=== PATIENT | male | born 1940 | race Caucasian/White ===

== ENCOUNTER 2024-09-02 14:28 | Inpatient (IN) | payer MEDICARE, SELFPAY ==
[2024-09-02 14:30] VITALS: BP 123/67; PULSE 90; RESP 18; TEMP 35.9; O2SAT 97; BMI 33.0
--- NOTE | 2024-09-02 14:30 | ADMGEN ---
This patient, Manoj Sullivan, was admitted to 2nd Floor Room 204 as a skilled swing bed to due a total right knee replacement. Patient/family oriented to hospital policies and general routines including ID bracelet, bed and alarms, visiting hours, pain management, procedures, bathroom and other care routines, personal items, smoking policy, room service/diet, and visiting hours. Information on how to activate the Rapid Response Team has been discussed. Patient/Family are encouraged to report perceived risks to care and to ask questions if they do not understand what they are told or what they should do.
[2024-09-02 17:26] VITALS: PULSE 90; RESP 18; O2SAT 97
[2024-09-02] MEDS: SIMVASTATIN 10 MG TABLET 80 MG PO (17:51)
[2024-09-02] MEDS: ASPIRIN 81 MG CHEWABLE TABLET PO (17:52)
[2024-09-02] MEDS: ASCORBIC ACID 500 MG TABLET PO (17:52)
[2024-09-02] MEDS: HYDROcodone/acetaminophen (*CRX) 5-325 MG TABLET 1 TAB PO (17:52)
[2024-09-02] MEDS: metFORMIN HCL XR 500 MG TAB.SR.24H PO (17:52)
[2024-09-02 20:00] VITALS: PULSE 90; RESP 18; O2SAT 97
[2024-09-02] MEDS: HYDROcodone/acetaminophen (*CRX) 5-325 MG TABLET 2 TAB PO (21:52)
[2024-09-02] MEDS: FENOFIBRATE NANOCRYSTALLIZED 145 MG TABLET PO (21:52)
[2024-09-03] VITALS: BP 138/68; PULSE 93; RESP 16; TEMP 36.6; O2SAT 96
[2024-09-03 07:34] LABS: Hematocrit 36.0 % (37.0-46.0); Hemoglobin 11.7 g/dL (12.4-15.3); Mean Corpuscular HGB Conc 32.5 g/dL (32-36); Mean Corpuscular Hemoglobin 31.6 pg (27.0-31.0); Mean Corpuscular Volume 97.3 fL (78.0-102.0); Platelet Count Result 276 K/mm3 (150-420); Red Blood Count 3.70 M/mm3 (4.70-6.10); White Blood Count 9.7 K/mm3 (4.8-10.8)
[2024-09-03 07:48] LABS: Alanine Aminotransferase 20 U/L (6-50); Albumin Level 3.5 g/dL (3.5-5.1); Alkaline Phosphatase 48 U/L (38-126); Anion Gap 6 mmol/L (4-12); Aspartate Amino Transferase 28 U/L (17-59); Bilirubin,Total 1.0 mg/dL (0.2-1.3); Blood Urea Nitrogen 28 mg/dL (9-20); Calcium 8.9 mg/dL (8.4-10.2); Carbon Dioxide 29 mmol/L (22-30); Chloride 101 mmol/L (98-107); Estimated CRCL calculation 48 ml/min; Estimated Glomerular Filt Rate 53; Glucose 201 mg/dL (65-110); Magnesium 1.7 mg/dL (1.6-2.3); Osmolality Calculated 293 mOsm/kg (285-295); Potassium 3.9 mmol/L (3.4-5.0); Sodium 136 mmol/L (137-145); Total Protein 6.1 g/dL (6.3-8.2)
[2024-09-03 07:51] VITALS: BP 135/67; PULSE 95; RESP 18; TEMP 35.9; O2SAT 95
[2024-09-03] MEDS: INSULIN HUMAN LISPRO (*BKC) 1,000 UNITS/10 ML VIAL SUB-Q (08:12)
[2024-09-03] MEDS: ASPIRIN 81 MG CHEWABLE TABLET PO ×2 (08:14→17:14)
[2024-09-03] MEDS: metFORMIN HCL XR 500 MG TAB.SR.24H PO ×2 (08:14→17:13)
[2024-09-03] MEDS: CLOPIDOGREL BISULFATE 75 MG TABLET PO (08:15)
[2024-09-03] MEDS: TAMSULOSIN HCL 0.4 MG CAPSULE PO (08:15)
[2024-09-03] MEDS: CHOLECALCIFEROL (VITAMIN D3) 25 MCG (1,000 UNITS) TABLET 50 MCG PO (08:15)
[2024-09-03] MEDS: OPTI-GEN TAB 1 TABLET PO (08:15)
[2024-09-03] MEDS: ASCORBIC ACID 500 MG TABLET PO ×2 (08:18→17:13)
[2024-09-03] MEDS: HYDROcodone/acetaminophen (*CRX) 5-325 MG TABLET 1 TAB PO (08:18)
[2024-09-03] MEDS: LOPERAMIDE HCL 2 MG CAPSULE PO (09:01)
--- NOTE | 2024-09-03 10:29 | P.HP_ITS ---
H&P: HPI History of Present Illness Date/Time: 09/03/24 10:29 Chief Complaint: REHAB post total right knee replacement Narrative: patient is an 84-year-old male who was admitted to [facility] for karri nued rehab after a total right knee replacement. patient reports history of CAD with 3 stents, HTN, diabetes, BPH, and HLD. Patient in no acute distress on assessment denied any chest pain, SOB, nausea, vomiting, dizziness but did report some diarrhea secondary to resuming his metformin. Review of Systems Review of Systems: All systems reviewed & are unremarkable except as noted in HPI and below PMFSH Past Medical History Medical History (Updated 09/03/24 @ 10:35 by Emely Dobson APRN) Vitamin D deficiency HLD (hyperlipidemia) Diabetes type 2 BPH (benign prostatic hyperplasia) Hypertension Surgical History Surgical History Coronary artery disease status post coronary stent insertion Social History Social History Smoking packs per day: 1.5 Smoking cigarettes per day: 30.0 Years smoked: 15 Smoking pack-years: 22.50 Smoking status: Former smoker Tobacco type: cigarettes Alcohol intake: never Substance use: never Substance use type: does not use Do You Feel Safe in your Home?: Yes Lack of Transportation: No Lack of Food: Never True Current Housing: I Have Housing Concerned About Future Housing: No Difficulty Paying Gas/Electric Bills: No Difficulty Paying for Meds: No Currently Unemployed: No Education: Associate Degree Difficulty w/ Childcare or Family Care: No Spiritual care concerns: No Meds Home Medications and Allergies Home Medications ?Medication ?Instructions ?Recorded ?Confirmed ?Type amlodipine 10 mg tablet 10 mg PO DAILY 09/02/24 09/02/24 History ascorbic acid (vitamin C) 500 mg 500 mg PO BID 09/02/24 09/02/24 History capsule aspirin 81 mg tablet 81 mg PO BID 09/02/24 09/02/24 History cholecalciferol (vitamin D3) 50 50 mcg PO DAILY 09/02/24 09/02/24 History mcg (2,000 unit) capsule clopidogrel 75 mg tablet 75 mg PO DAILY 09/02/24 09/02/24 History diclofenac sodium 75 mg 75 mg PO DAILY PRN pain 09/02/24 09/02/24 History tablet,delayed release fenofibrate 160 mg tablet 160 mg PO HS 09/02/24 09/02/24 History glipizide 5 mg tablet 5 mg PO BIDWM 09/02/24 09/02/24 History hydrochlorothiazide 25 mg tablet 25 mg PO DAILY 09/02/24 09/02/24 History hydrocodone 5 mg-acetaminophen 325 1 tablet PO Q4H PRN pain (scale 09/02/24 09/02/24 History mg tablet score 4-6) hydrocodone 5 mg-acetaminophen 325 2 tablet PO Q4H PRN pain (scale 09/02/24 09/02/24 History mg tablet score 7-10) lisinopril 40 mg tablet 40 mg PO DAILY 09/02/24 09/02/24 History metformin 500 mg tablet,extended 500 mg PO BID 09/02/24 09/02/24 History release 24 hr qyjpxcax-bn-srvur 300 mcg-K 60 1 tablet PO DAILY 09/02/24 09/02/24 History mcg-lycop 600 mcg-lutein 300 mcg tablet (Century Men 50 Plus) nystatin 100,000 unit/gram topical 1 applic topical DAILY PRN rash 09/02/24 09/02/24 History cream senna-docusate sodium capsule 1 cap PO BID 09/02/24 09/02/24 History simvastatin 80 mg tablet 80 mg PO QPM 09/02/24 09/02/24 History tamsulosin 0.4 mg capsule 0.4 mg PO Q24H 09/02/24 09/02/24 History vitamins A,C,V-zsio-pfqzgh 2,148 1 tablet PO BID 09/02/24 09/02/24 History mcg-113 mg-45 mg-17.4 mg tablet (Eye Multivitamin) Allergies Allergy/AdvReac Type Severity Reaction Status Date / Time mold Allergy Mild Sneezing Verified 09/02/24 16:36 Vital Signs Vital Signs - 24 hr 09/02/24 14:30 09/02/24 14:30 09/02/24 17:26 Temperature 96.6 F L Pulse Rate 90 90 90 Respiratory Rate 18 18 18 Blood Pressure 123/67 Pulse Oximetry 97 97 97 Oxygen Delivery Room Air Room Air Room Air 09/02/24 20:00 09/03/24 00:00 09/03/24 07:51 Temperature 97.9 F 96.6 F L Pulse Rate 90 93 95 Respiratory Rate 18 16 18 Blood Pressure 138/68 135/67 Pulse Oximetry 97 96 95 Oxygen Delivery Room Air Room Air Room Air Exam Narrative: Physical Exam: * GENERAL: Alert and oriented x 3. No acute distress. * EYES: EOMI. No scleral icterus. PERRLA. * HEENT: Moist mucous membranes. * LUNGS: Clear to auscultation bilaterally. No accessory muscle use. * CARDIOVASCULAR: Regular rate and rhythm. No murmur. No JVD. S1-S2 * ABDOMEN: Soft, non tenderness and non-distended. No palpable masses. * EXTREMITIES: right knee with surgical dressing no erythema or swelling * SKIN: No rashes or lesions. Skin warm, dry. * NEUROLOGIC: No focal neurological deficits. CN II-XII grossly intact * PSYCHIATRIC: Appropriate mood and affect. H&P: Results Labs Labs: Short CBC 09/03/24 Range/Units 07:31 WBC 9.7 (4.8-10.8) K/mm3 Hgb 11.7 L (12.4-15.3) g/dL Hct 36.0 L (37.0-46.0) % Plt Count 276 (150-420) K/mm3 BMP 09/03/24 07:31 Sodium 136 L Potassium 3.9 Chloride 101 Carbon Dioxide 29 BUN 28 H Creatinine 1.29 Glucose 201 H Calcium 8.9 Liver Function 09/03/24 Range/Units 07:31 Total Bilirubin 1.0 (0.2-1.3) mg/dL AST 28 (17-59) U/L ALT 20 (6-50) U/L Alkaline Phosphatase 48 (38-126) U/L Albumin 3.5 (3.5-5.1) g/dL Assessment and Plan Assessment and plan (1) Status post right knee replacement: Code(s): Z96.651 - Presence of right artificial knee joint Status: Acute Assessment and Plan: patient with total right knee replacement postop * PT/ OT weight-bearing as tolerated * may remove dressing after 7th day * clean site with soap and water/ may shower postop day 1 * compression stockings * pain management * postop follow-up Friday October 25, 2024 at 1:15 a.m. (2) Vitamin D deficiency: Code(s): E55.9 - Vitamin D deficiency, unspecified Status: Acute Assessment and Plan: * continued vitamin-D supplement (3) Hypertension: Code(s): I10 - Essential (primary) hypertension Status: Acute Assessment and Plan: * continued amlodipine and lisinopril * monitor BP per unit protocol (4) Coronary artery disease status post coronary stent insertion: Code(s): I25.10 - Atherosclerotic heart disease of [place] coronary artery without angina pectoris; Z95.5 - Presence of coronary angioplasty implant and graft Status: Acute Assessment and Plan: * continued ASA, Plavix, and statin (5) HLD (hyperlipidemia): Code(s): E78.5 - Hyperlipidemia, unspecified Status: Acute Assessment and Plan: * continued statin and fenofibrate (6) Diabetes type 2: Code(s): E11.9 - Type 2 diabetes mellitus without complications Status: Acute Assessment and Plan: * continue patient's metformin and glipizide * low-dose SSI * diabetic diet * Accu-Cheks a.c. HS (7) BPH (benign prostatic hyperplasia): Code(s): N40.0 - Benign prostatic hyperplasia without lower urinary tract symptoms Status: Acute Assessment and Plan: * continued Flomax Plan Code status: Full code per patient DVT prophylaxis: JUAN A/nash manriquez Stress ulcer prophylaxis: NA PT/OT notes: Swing Bed Disposition: patient admitted to [facility] for continued rehab postop total right knee patient reports he does live at home alone previously was using a walker for ambulation plan is to return home following rehab. Quality VTE Prophylaxis VTE prophylaxis: mechanical ordered -Patient's previous records reviewed on admission -ER notes reviewed in detail on admission -discussed all findings and current treatment plan with patient/Family/POA -Consultations reviewed for recommendations -Patient's disposition for safe discharge discussed with casework manager Dictation performed by [employer] direct speech recognition software, therefore food beverage attendant variants and typographical errors may occur. Hospitalist DOMINIC Advance Care Plan I have confirmed that the patient's Advanced Care Plan is present, code status is documented, or surrogate decision maker is listed in patient medical record.: Yes Medication Reconciliation I have utilized all available resources to obtain, update and review the patients current medications (includes all prescriptions, OTC, herbals, cannabis, and nutritional supplements).: Yes The patient is not eligible for med reconciliation; the patient is in a emergent medical situation where delaying treatment would jeopardize the patients health.: No
[2024-09-03] MEDS: HYDROcodone/acetaminophen (*CRX) 5-325 MG TABLET 2 TAB PO ×3 (12:25→21:34)
[2024-09-03 16:00] VITALS: BP 131/74; PULSE 84; RESP 16; TEMP 36.1; O2SAT 96
[2024-09-03] MEDS: SIMVASTATIN 10 MG TABLET 80 MG PO (17:11)
[2024-09-03] MEDS: FENOFIBRATE NANOCRYSTALLIZED 145 MG TABLET PO (21:33)
[2024-09-04] VITALS: BP 123/61; PULSE 80; RESP 16; TEMP 36.4; O2SAT 96
[2024-09-04] MEDS: LOPERAMIDE HCL 2 MG CAPSULE PO ×2 (07:06→23:49)
[2024-09-04] MEDS: HYDROcodone/acetaminophen (*CRX) 5-325 MG TABLET 2 TAB PO ×4 (07:07→20:24)
[2024-09-04 07:33] VITALS: BP 119/56; PULSE 83; RESP 16; TEMP 35.8; O2SAT 95
[2024-09-04] MEDS: CHOLECALCIFEROL (VITAMIN D3) 25 MCG (1,000 UNITS) TABLET 50 MCG PO (08:35)
[2024-09-04] MEDS: metFORMIN HCL XR 500 MG TAB.SR.24H PO ×2 (08:36→17:39)
[2024-09-04] MEDS: OPTI-GEN TAB 1 TABLET PO (08:36)
[2024-09-04] MEDS: TAMSULOSIN HCL 0.4 MG CAPSULE PO (08:37)
[2024-09-04] MEDS: ASPIRIN 81 MG CHEWABLE TABLET PO ×2 (08:37→17:40)
[2024-09-04] MEDS: CLOPIDOGREL BISULFATE 75 MG TABLET PO (08:38)
[2024-09-04] MEDS: ASCORBIC ACID 500 MG TABLET PO ×2 (08:38→17:40)
[2024-09-04] MEDS: INSULIN HUMAN LISPRO (*BKC) 1,000 UNITS/10 ML VIAL SUB-Q (11:35)
[2024-09-04 16:00] VITALS: BP 133/62; PULSE 75; RESP 16; TEMP 35.9; O2SAT 97
[2024-09-04] MEDS: SIMVASTATIN 10 MG TABLET 80 MG PO (17:38)
[2024-09-04 20:00] VITALS: PULSE 78; RESP 16; O2SAT 96
[2024-09-04] MEDS: FENOFIBRATE NANOCRYSTALLIZED 145 MG TABLET PO (20:24)
[2024-09-05] VITALS: BP 134/69; PULSE 77; RESP 16; TEMP 36.9; O2SAT 96
[2024-09-05] MEDS: HYDROcodone/acetaminophen (*CRX) 5-325 MG TABLET 2 TAB PO ×3 (05:25→16:25)
[2024-09-05 08:00] VITALS: BP 138/62; PULSE 78; RESP 18; TEMP 36.6; O2SAT 95
[2024-09-05] MEDS: CHOLECALCIFEROL (VITAMIN D3) 25 MCG (1,000 UNITS) TABLET 50 MCG PO (09:34)
[2024-09-05] MEDS: metFORMIN HCL XR 500 MG TAB.SR.24H PO ×2 (09:35→17:29)
[2024-09-05] MEDS: OPTI-GEN TAB 1 TABLET PO (09:35)
[2024-09-05] MEDS: CLOPIDOGREL BISULFATE 75 MG TABLET PO (09:35)
[2024-09-05] MEDS: ASPIRIN 81 MG CHEWABLE TABLET PO ×2 (09:35→17:29)
[2024-09-05] MEDS: TAMSULOSIN HCL 0.4 MG CAPSULE PO (09:35)
[2024-09-05] MEDS: LOPERAMIDE HCL 2 MG CAPSULE PO ×2 (09:35→17:30)
[2024-09-05] MEDS: ASCORBIC ACID 500 MG TABLET PO ×2 (09:36→17:29)
--- NOTE | 2024-09-05 12:50 | PC.NURSE ---
Offered CPM machine, casa at this time
[2024-09-05] MEDS: DICLOFENAC SOD 75 MG TABLET.EC PO (14:52)
[2024-09-05 16:00] VITALS: BP 120/60; PULSE 78; RESP 18; TEMP 36.4; O2SAT 95
[2024-09-05] MEDS: SIMVASTATIN 10 MG TABLET 80 MG PO (17:30)
--- NOTE | 2024-09-05 18:16 | PC.NURSE ---
Patient offered to be put back on CPM, patient refusing at this time, just wants to rest.
[2024-09-05 20:00] VITALS: PULSE 78; RESP 18; O2SAT 95
[2024-09-05] MEDS: FENOFIBRATE NANOCRYSTALLIZED 145 MG TABLET PO (21:10)
[2024-09-05] MEDS: HYDROcodone/acetaminophen (*CRX) 5-325 MG TABLET 1 TAB PO (21:10)
[2024-09-06] VITALS: BP 123/65; PULSE 78; RESP 18; TEMP 36.4; O2SAT 94
[2024-09-06] MEDS: LOPERAMIDE HCL 2 MG CAPSULE PO ×3 (06:01→20:15)
[2024-09-06 07:45] VITALS: BP 132/54; PULSE 85; RESP 18; TEMP 36.2; O2SAT 96
[2024-09-06 08:30] VITALS: PULSE 85; RESP 18; O2SAT 96
[2024-09-06] MEDS: CLOPIDOGREL BISULFATE 75 MG TABLET PO (09:01)
[2024-09-06] MEDS: TAMSULOSIN HCL 0.4 MG CAPSULE PO (09:01)
[2024-09-06] MEDS: HYDROcodone/acetaminophen (*CRX) 5-325 MG TABLET 1 TAB PO (09:01)
[2024-09-06] MEDS: ASCORBIC ACID 500 MG TABLET PO ×2 (09:02→18:12)
[2024-09-06] MEDS: OPTI-GEN TAB 1 TABLET PO (09:02)
[2024-09-06] MEDS: CHOLECALCIFEROL (VITAMIN D3) 25 MCG (1,000 UNITS) TABLET 50 MCG PO (09:02)
[2024-09-06] MEDS: metFORMIN HCL XR 500 MG TAB.SR.24H PO ×2 (09:02→18:12)
[2024-09-06] MEDS: ASPIRIN 81 MG CHEWABLE TABLET PO ×2 (09:02→18:12)
--- NOTE | 2024-09-06 13:00 | PC.NURSE ---
patient transferred back to bed, resting with hob elevated. Patient placed on CPM, will try to keep on for 2 hours.
[2024-09-06 16:35] VITALS: BP 137/69; PULSE 84; RESP 16; TEMP 35.9; O2SAT 95
[2024-09-06] MEDS: SIMVASTATIN 10 MG TABLET 80 MG PO (18:11)
[2024-09-06] MEDS: HYDROcodone/acetaminophen (*CRX) 5-325 MG TABLET 2 TAB PO (20:15)
[2024-09-06] MEDS: FENOFIBRATE NANOCRYSTALLIZED 145 MG TABLET PO (20:15)
--- NOTE | 2024-09-06 20:15 | PC.NURSE ---
Patient refused CPM machine. Daughter at bedside and aware. Patient agreed to use CPM in the morning.
[2024-09-07] VITALS: BP 117/59; PULSE 82; RESP 18; TEMP 36.6; O2SAT 96
[2024-09-07] MEDS: HYDROcodone/acetaminophen (*CRX) 5-325 MG TABLET 2 TAB PO ×3 (04:59→20:24)
[2024-09-07 08:00] VITALS: BP 140/63; PULSE 76; RESP 14; TEMP 36.4; O2SAT 95
[2024-09-07] MEDS: ASCORBIC ACID 500 MG TABLET PO ×2 (09:07→17:12)
[2024-09-07] MEDS: OPTI-GEN TAB 1 TABLET PO (09:07)
[2024-09-07] MEDS: HYDROcodone/acetaminophen (*CRX) 5-325 MG TABLET 1 TAB PO (09:08)
[2024-09-07] MEDS: TAMSULOSIN HCL 0.4 MG CAPSULE PO (09:08)
[2024-09-07] MEDS: CHOLECALCIFEROL (VITAMIN D3) 25 MCG (1,000 UNITS) TABLET 50 MCG PO (09:09)
[2024-09-07] MEDS: metFORMIN HCL XR 500 MG TAB.SR.24H PO ×2 (09:10→17:11)
[2024-09-07] MEDS: ASPIRIN 81 MG CHEWABLE TABLET PO ×2 (09:10→17:11)
[2024-09-07] MEDS: CLOPIDOGREL BISULFATE 75 MG TABLET PO (09:10)
[2024-09-07] MEDS: LOPERAMIDE HCL 2 MG CAPSULE PO ×2 (09:15→17:12)
--- NOTE | 2024-09-07 14:13 | PC.NURSE ---
Correction. This pt does not have farrah in his incision on the right knee. He has glue.
[2024-09-07 16:00] VITALS: BP 94/54; PULSE 78; RESP 18; TEMP 36.3; O2SAT 95
[2024-09-07] MEDS: SIMVASTATIN 10 MG TABLET 80 MG PO (17:12)
[2024-09-07] MEDS: FENOFIBRATE NANOCRYSTALLIZED 145 MG TABLET PO (20:25)
[2024-09-08] VITALS: BP 133/58; PULSE 74; RESP 18; TEMP 36.2; O2SAT 97
[2024-09-08] MEDS: LOPERAMIDE HCL 2 MG CAPSULE PO ×5 (01:28→20:47)
[2024-09-08] MEDS: HYDROcodone/acetaminophen (*CRX) 5-325 MG TABLET 2 TAB PO ×3 (04:48→13:21)
[2024-09-08 08:00] VITALS: BP 144/61; PULSE 84; RESP 18; TEMP 36.3; O2SAT 96
[2024-09-08] MEDS: CHOLECALCIFEROL (VITAMIN D3) 25 MCG (1,000 UNITS) TABLET 50 MCG PO (09:00)
[2024-09-08] MEDS: TAMSULOSIN HCL 0.4 MG CAPSULE PO (09:01)
[2024-09-08] MEDS: OPTI-GEN TAB 1 TABLET PO (09:01)
[2024-09-08] MEDS: metFORMIN HCL XR 500 MG TAB.SR.24H PO ×2 (09:01→17:09)
[2024-09-08] MEDS: CLOPIDOGREL BISULFATE 75 MG TABLET PO (09:02)
[2024-09-08] MEDS: ASCORBIC ACID 500 MG TABLET PO ×2 (09:02→17:08)
[2024-09-08] MEDS: ASPIRIN 81 MG CHEWABLE TABLET PO ×2 (09:03→17:09)
[2024-09-08 16:00] VITALS: BP 114/59; PULSE 73; RESP 16; TEMP 35.6; O2SAT 97
[2024-09-08] MEDS: SIMVASTATIN 10 MG TABLET 80 MG PO (17:08)
[2024-09-08 20:00] VITALS: PULSE 73; RESP 16; O2SAT 97
[2024-09-08] MEDS: HYDROcodone/acetaminophen (*CRX) 5-325 MG TABLET 1 TAB PO (20:47)
[2024-09-08] MEDS: FENOFIBRATE NANOCRYSTALLIZED 145 MG TABLET PO (20:47)
[2024-09-09] VITALS: BP 134/62; PULSE 78; RESP 16; TEMP 36.9; O2SAT 95
[2024-09-09 07:57] VITALS: BP 113/59; PULSE 76; RESP 16; TEMP 36.1; O2SAT 96
[2024-09-09] MEDS: LOPERAMIDE HCL 2 MG CAPSULE PO (08:33)
[2024-09-09] MEDS: OPTI-GEN TAB 1 TABLET PO (08:33)
[2024-09-09] MEDS: CHOLECALCIFEROL (VITAMIN D3) 25 MCG (1,000 UNITS) TABLET 50 MCG PO (08:33)
[2024-09-09] MEDS: metFORMIN HCL XR 500 MG TAB.SR.24H PO ×2 (08:34→17:08)
[2024-09-09] MEDS: HYDROcodone/acetaminophen (*CRX) 5-325 MG TABLET 1 TAB PO ×2 (08:34→21:57)
[2024-09-09] MEDS: CLOPIDOGREL BISULFATE 75 MG TABLET PO (08:36)
[2024-09-09] MEDS: TAMSULOSIN HCL 0.4 MG CAPSULE PO (08:36)
[2024-09-09] MEDS: ASCORBIC ACID 500 MG TABLET PO ×2 (08:36→17:08)
[2024-09-09] MEDS: ASPIRIN 81 MG CHEWABLE TABLET PO ×2 (08:37→17:06)
[2024-09-09] MEDS: HYDROcodone/acetaminophen (*CRX) 5-325 MG TABLET 2 TAB PO (15:03)
[2024-09-09 16:00] VITALS: BP 108/53; PULSE 71; RESP 18; TEMP 36.4; O2SAT 93
[2024-09-09] MEDS: SIMVASTATIN 10 MG TABLET 80 MG PO (17:05)
--- NOTE | 2024-09-09 17:58 | PC.NURSE ---
Dressing change completed to surgical site. No s/s infection. Patient tolerated well.
[2024-09-09] MEDS: FENOFIBRATE NANOCRYSTALLIZED 145 MG TABLET PO (21:56)
[2024-09-10] VITALS: BP 134/58; PULSE 78; RESP 14; TEMP 36.1; O2SAT 96
[2024-09-10 08:00] VITALS: BP 129/55; PULSE 92; RESP 15; TEMP 35.9; O2SAT 96
--- NOTE | 2024-09-10 09:05 | P.PNIM_ITS ---
Progress Note: A&P Assessment and Plan (1) Status post right knee replacement: Code(s): Z96.651 - Presence of right artificial knee joint Status: Acute Assessment and Plan: patient with total right knee replacement postop * PT/ OT weight-bearing as tolerated * may remove dressing after 7th day * clean site with soap and water/ may shower postop day 1 * compression stockings * pain management * postop follow-up Friday October 25, 2024 at 1:15 a.m. (2) Vitamin D deficiency: Code(s): E55.9 - Vitamin D deficiency, unspecified Status: Acute Assessment and Plan: * continued vitamin-D supplement (3) Hypertension: Code(s): I10 - Essential (primary) hypertension Status: Acute Assessment and Plan: * continued amlodipine and lisinopril * monitor BP per unit protocol (4) Coronary artery disease status post coronary stent insertion: Code(s): I25.10 - Atherosclerotic heart disease of [place] coronary artery without angina pectoris; Z95.5 - Presence of coronary angioplasty implant and graft Status: Acute Assessment and Plan: * continued ASA, Plavix, and statin (5) HLD (hyperlipidemia): Code(s): E78.5 - Hyperlipidemia, unspecified Status: Acute Assessment and Plan: * continued statin and fenofibrate (6) Diabetes type 2: Code(s): E11.9 - Type 2 diabetes mellitus without complications Status: Acute Assessment and Plan: * continue patient's metformin and glipizide * low-dose SSI * diabetic diet * Accu-Cheks a.c. HS (7) BPH (benign prostatic hyperplasia): Code(s): N40.0 - Benign prostatic hyperplasia without lower urinary tract symptoms Status: Acute Assessment and Plan: * continued Flomax Plan Code status: Full code per patient DVT prophylaxis: JUAN A/nash manriquez Stress ulcer prophylaxis: NA PT/OT notes: Swing Bed Disposition: patient admitted to [facility] for continued rehab posto p total right knee patient reports he does live at home alone previously was using a walker for ambulation plan is to return home following rehab. Subjective Date/time seen: 09/10/24 09:05 Interval history: Patient in recliner and is pain free according to patient as long I don't make him move he is fine. Patient has call light and is eating and drinking ok at this time. Exam Narrative: Physical Exam: * GENERAL: Alert and oriented x 3. No acute distress. * EYES: EOMI. No scleral icterus. PERRLA. * HEENT: Moist mucous membranes. * LUNGS: Clear to auscultation bilaterally. No accessory muscle use. * CARDIOVASCULAR: Regular rate and rhythm. No murmur. No JVD. S1-S2 * ABDOMEN: Soft, non tenderness and non-distended. No palpable masses. * EXTREMITIES: right knee with surgical dressing no erythema or swelling * SKIN: No rashes or lesions. Skin warm, dry. * NEUROLOGIC: No focal neurological deficits. CN II-XII grossly intact * PSYCHIATRIC: Appropriate mood and affect. Objective Data Vital Signs Vital Signs: Vital Signs - 24 hr 09/09/24 16:00 09/10/24 00:00 Temperature 97.6 F 97 F L Pulse Rate 71 78 Respiratory Rate 18 14 Blood Pressure 108/53 L 134/58 L Pulse Oximetry 93 96 Oxygen Delivery Room Air Room Air Intake/Output Intake/Output: Intake & Output 09/07/24 09/08/24 09/09/24 09/10/24 23:59 23:59 23:59 23:59 Intake Total 1900 1690 1660 370 Output Total 650 2050 2050 1550 Balance 1250 -360 -390 -1180 Meds/Results Medications: Active Medications Generic Name Dose Route Start Last Admin Trade Name Freq PRN Reason Stop Dose Admin Acetaminophen 650 mg 09/02/24 17:26 Acetaminophen 325 Mg Tablet PO Q6H PRN Mild Pain (1-3) or Fever Hydrocodone Bitart/Acetaminophen 1 tab 09/02/24 17:25 09/09/24 21:57 Hydrocodone/Acetaminophen (*Crx) 5-325 Mg Tablet PO 1 tab Q4H PRN Administration pain (scale score 4-6) Hydrocodone Bitart/Acetaminophen 2 tab 09/02/24 17:25 09/09/24 15:03 Hydrocodone/Acetaminophen (*Crx) 5-325 Mg Tablet PO 2 tab Q4H PRN Administration pain (scale score 7-10) Amlodipine Besylate 10 mg 09/03/24 09:00 09/09/24 08:35 Amlodipine Besylate 5 Mg Tablet PO 10 mg DAILY JENNIFER Administration Ascorbic Acid 500 mg 09/02/24 17:40 09/09/24 17:08 Ascorbic Acid 500 Mg Tablet PO 500 mg BID JENNIFER Administration Aspirin 81 mg 09/02/24 17:40 09/09/24 17:06 Aspirin 81 Mg Chewable Tablet PO 81 mg BID JENNIFER Administration Clopidogrel Bisulfate 75 mg 09/03/24 09:00 09/09/24 08:36 Clopidogrel Bisulfate 75 Mg Tablet PO 75 mg DAILY JENINFER Administration Dextrose 12.5 gm 09/02/24 17:26 Dextrose 50% 25 Gm/50 Ml Syringe IV PUSH PRN PRN Hypoglycemia Protocol Diclofenac Sodium 75 mg 09/02/24 17:25 09/05/24 14:52 Diclofenac Sod 75 Mg Tablet.Ec PO 75 mg DAILY PRN Administration JOINT PAIN Fenofibrate 145 mg 09/02/24 21:00 09/09/24 21:56 Fenofibrate Nanocrystallized 145 Mg Tablet PO 145 mg HS JENNIFER Administration Glipizide 5 mg 09/02/24 17:40 09/09/24 17:07 Glipizide 5 Mg Tablet PO 5 mg BIDWM JENNIFER Administration Glucagon 1 mg 09/02/24 17:26 Glucagon For Inj 1 Mg Vial IM PRN PRN Hypoglycemia Protocol Glucose 15 gm 09/02/24 17:26 Glucose Oral Gel 15 Gm Of Glucse In 37.5 Gm Tube PO PRN PRN Hypoglycemia Protocol Hydrochlorothiazide 25 mg 09/03/24 09:00 09/09/24 08:34 Hydrochlorothiazide 25 Mg Tablet PO 25 mg DAILY JENNIFER Administration Dextrose 1,000 mls @ 100 mls/hr 09/02/24 17:26 Dextrose 5% 1,000 Ml IVPB PRN PRN Hypoglycemia Protocol Insulin Human Lispro 2 - 5 units 09/03/24 08:00 09/10/24 08:48 Insulin Human Lispro (*Bkc) 1,000 Units/10 Ml Vial SUB-Q Not Given TIDWM [facility] Protocol Lisinopril 40 mg 09/03/24 09:00 09/09/24 08:35 Lisinopril 20 Mg Tablet PO 40 mg DAILY JENNIFER Administration Loperamide HCl 2 mg 09/02/24 18:47 09/09/24 08:33 Loperamide Hcl 2 Mg Capsule PO 2 mg PRN PRN Administration Diarrhea Metformin HCl 500 mg 09/02/24 17:40 09/09/24 17:08 Metformin Hcl Xr 500 Mg Tab.Sr.24h PO 500 mg BID JENNIFER Administration Miconazole Nitrate 1 applic 09/02/24 17:40 Miconazole Nitrate 2% Cream 30 Gm Tube TOPICAL DAILY PRN rash Multivitamins/Minerals 1 tablet 09/03/24 09:00 09/09/24 08:33 Opti-Gen Tab PO 1 tablet DAILY JENNIFER Administration Ondansetron HCl 4 mg 09/02/24 17:26 Ondansetron Hcl Odt 4 Mg Tablet PO Q6H PRN Nausea And Vomiting Senna/Docusate Sodium 1 tab 09/02/24 18:19 Senna/Docusate Sodium Tablet PO BID PRN Constipation Simvastatin 80 mg 09/02/24 18:00 09/09/24 17:05 Simvastatin 10 Mg Tablet PO 80 mg QPM JENNIFER Administration Tamsulosin HCl 0.4 mg 09/03/24 08:30 09/09/24 08:36 Tamsulosin Hcl 0.4 Mg Capsule PO 0.4 mg DAILY@0830 JENNIFER Administration Vitamin D 50 mcg 09/03/24 09:00 09/09/24 08:33 Cholecalciferol (Vitamin D3) 25 Mcg (1,000 Units) Tablet PO 50 mcg DAILY JENNIFER Administration Labs Labs: Laboratory Results - last 24 hr 09/09/24 09/09/24 09/09/24 07:42 11:43 16:39 POC Capillary Glucose 161 H 157 H 115 H 09/09/24 09/10/24 21:59 08:30 POC Capillary Glucose 127 H 202 H
[2024-09-10] MEDS: CLOPIDOGREL BISULFATE 75 MG TABLET PO (09:14)
[2024-09-10] MEDS: ASCORBIC ACID 500 MG TABLET PO ×2 (09:14→17:42)
[2024-09-10] MEDS: TAMSULOSIN HCL 0.4 MG CAPSULE PO (09:14)
[2024-09-10] MEDS: LOPERAMIDE HCL 2 MG CAPSULE PO (09:14)
[2024-09-10] MEDS: HYDROcodone/acetaminophen (*CRX) 5-325 MG TABLET 1 TAB PO ×2 (09:14→17:42)
[2024-09-10] MEDS: metFORMIN HCL XR 500 MG TAB.SR.24H PO ×2 (09:14→17:42)
[2024-09-10] MEDS: CHOLECALCIFEROL (VITAMIN D3) 25 MCG (1,000 UNITS) TABLET 50 MCG PO (09:14)
[2024-09-10] MEDS: OPTI-GEN TAB 1 TABLET PO (09:14)
[2024-09-10] MEDS: ASPIRIN 81 MG CHEWABLE TABLET PO ×2 (09:14→17:42)
[2024-09-10 16:00] VITALS: BP 122/54; PULSE 84; RESP 16; TEMP 35.9; O2SAT 97
[2024-09-10] MEDS: SIMVASTATIN 10 MG TABLET 80 MG PO (17:42)
[2024-09-10] MEDS: ONDANSETRON HCL ODT 4 MG TABLET PO (17:49)
[2024-09-10] MEDS: HYDROcodone/acetaminophen (*CRX) 5-325 MG TABLET 2 TAB PO (21:47)
[2024-09-10] MEDS: FENOFIBRATE NANOCRYSTALLIZED 145 MG TABLET PO (21:47)
[2024-09-11] VITALS: BP 108/51; PULSE 78; RESP 16; TEMP 36.2; O2SAT 95
[2024-09-11] MEDS: HYDROcodone/acetaminophen (*CRX) 5-325 MG TABLET 1 TAB PO ×2 (05:50→10:06)
[2024-09-11 08:00] VITALS: PULSE 75; RESP 18; TEMP 35.9; O2SAT 95
[2024-09-11] MEDS: OPTI-GEN TAB 1 TABLET PO (09:24)
[2024-09-11] MEDS: CHOLECALCIFEROL (VITAMIN D3) 25 MCG (1,000 UNITS) TABLET 50 MCG PO (09:24)
[2024-09-11] MEDS: ASCORBIC ACID 500 MG TABLET PO ×2 (09:25→16:47)
[2024-09-11] MEDS: metFORMIN HCL XR 500 MG TAB.SR.24H PO ×2 (09:25→16:47)
[2024-09-11] MEDS: DICLOFENAC SOD 75 MG TABLET.EC PO (09:25)
[2024-09-11] MEDS: CLOPIDOGREL BISULFATE 75 MG TABLET PO (09:25)
[2024-09-11] MEDS: TAMSULOSIN HCL 0.4 MG CAPSULE PO (09:25)
[2024-09-11] MEDS: LOPERAMIDE HCL 2 MG CAPSULE PO (09:25)
[2024-09-11] MEDS: ASPIRIN 81 MG CHEWABLE TABLET PO ×2 (09:26→16:47)
[2024-09-11 16:00] VITALS: BP 102/56; PULSE 71; RESP 1; TEMP 36.3; O2SAT 95
[2024-09-11] MEDS: SIMVASTATIN 10 MG TABLET 80 MG PO (17:53)
--- NOTE | 2024-09-11 18:55 | PC.NURSE ---
Patient up to chair for supper. Fed self. Patient brushed teeth after supper. Assisted to bathroom and then to bed. Gait belt and walker used. Assisted to bed. SR up x2 with call light and belongings within reach. HOB elevated.
[2024-09-11] MEDS: HYDROcodone/acetaminophen (*CRX) 5-325 MG TABLET 2 TAB PO (21:10)
[2024-09-11] MEDS: FENOFIBRATE NANOCRYSTALLIZED 145 MG TABLET PO (21:10)
[2024-09-12] VITALS: BP 114/56; PULSE 69; RESP 17; TEMP 36.3; O2SAT 95
[2024-09-12] MEDS: HYDROcodone/acetaminophen (*CRX) 5-325 MG TABLET 1 TAB PO (05:53)
[2024-09-12 08:00] VITALS: BP 139/50; PULSE 72; RESP 18; TEMP 36.1; O2SAT 96
[2024-09-12] MEDS: LOPERAMIDE HCL 2 MG CAPSULE PO (08:29)
[2024-09-12] MEDS: CHOLECALCIFEROL (VITAMIN D3) 25 MCG (1,000 UNITS) TABLET 50 MCG PO (08:29)
[2024-09-12] MEDS: ASCORBIC ACID 500 MG TABLET PO ×2 (08:30→16:59)
[2024-09-12] MEDS: TAMSULOSIN HCL 0.4 MG CAPSULE PO (08:30)
[2024-09-12] MEDS: metFORMIN HCL XR 500 MG TAB.SR.24H PO ×2 (08:30→16:59)
[2024-09-12] MEDS: OPTI-GEN TAB 1 TABLET PO (08:31)
[2024-09-12] MEDS: ASPIRIN 81 MG CHEWABLE TABLET PO ×2 (08:31→17:00)
[2024-09-12] MEDS: CLOPIDOGREL BISULFATE 75 MG TABLET PO (08:31)
[2024-09-12 16:00] VITALS: BP 105/45; PULSE 79; RESP 16; TEMP 35.7; O2SAT 96
[2024-09-12] MEDS: SIMVASTATIN 10 MG TABLET 80 MG PO (16:58)
--- NOTE | 2024-09-12 17:33 | PC.NURSE ---
Dressing changed to surgical site on R knee. Wound cleansed, well approximated with no s/s infection noted. Patient tolerated well.
[2024-09-12 20:00] VITALS: PULSE 79; RESP 16; O2SAT 96
[2024-09-12] MEDS: HYDROcodone/acetaminophen (*CRX) 5-325 MG TABLET 2 TAB PO (21:18)
[2024-09-12] MEDS: FENOFIBRATE NANOCRYSTALLIZED 145 MG TABLET PO (21:18)
[2024-09-13] VITALS: BP 126/61; PULSE 83; RESP 17; TEMP 36.2; O2SAT 96
[2024-09-13] MEDS: HYDROcodone/acetaminophen (*CRX) 5-325 MG TABLET 1 TAB PO (05:41)
[2024-09-13 07:55] VITALS: BP 142/65; PULSE 71; RESP 16; TEMP 35.7; O2SAT 95
[2024-09-13] MEDS: CHOLECALCIFEROL (VITAMIN D3) 25 MCG (1,000 UNITS) TABLET 50 MCG PO (08:44)
[2024-09-13] MEDS: metFORMIN HCL XR 500 MG TAB.SR.24H PO ×2 (08:45→17:27)
[2024-09-13] MEDS: CLOPIDOGREL BISULFATE 75 MG TABLET PO (08:45)
[2024-09-13] MEDS: OPTI-GEN TAB 1 TABLET PO (08:45)
[2024-09-13] MEDS: ASCORBIC ACID 500 MG TABLET PO ×2 (08:45→17:25)
[2024-09-13] MEDS: ASPIRIN 81 MG CHEWABLE TABLET PO ×2 (08:46→17:26)
[2024-09-13] MEDS: TAMSULOSIN HCL 0.4 MG CAPSULE PO (08:46)
[2024-09-13 16:00] VITALS: BP 141/69; PULSE 86; RESP 18; TEMP 35.7; O2SAT 96
[2024-09-13] MEDS: SIMVASTATIN 10 MG TABLET 80 MG PO (17:25)
[2024-09-13 20:00] VITALS: PULSE 86; RESP 18; O2SAT 96
[2024-09-13] MEDS: FENOFIBRATE NANOCRYSTALLIZED 145 MG TABLET PO (21:10)
[2024-09-13] MEDS: HYDROcodone/acetaminophen (*CRX) 5-325 MG TABLET 2 TAB PO (21:10)
[2024-09-14] VITALS: BP 112/57; PULSE 88; RESP 17; TEMP 36.6; O2SAT 99
[2024-09-14] MEDS: HYDROcodone/acetaminophen (*CRX) 5-325 MG TABLET 2 TAB PO (05:44)
[2024-09-14 08:00] VITALS: BP 140/62; PULSE 74; RESP 18; TEMP 36.1; O2SAT 94
[2024-09-14] MEDS: OPTI-GEN TAB 1 TABLET PO (08:37)
[2024-09-14] MEDS: ASPIRIN 81 MG CHEWABLE TABLET PO ×2 (08:37→17:37)
[2024-09-14] MEDS: ASCORBIC ACID 500 MG TABLET PO ×2 (08:37→17:37)
[2024-09-14] MEDS: CLOPIDOGREL BISULFATE 75 MG TABLET PO (08:38)
[2024-09-14] MEDS: TAMSULOSIN HCL 0.4 MG CAPSULE PO (08:38)
[2024-09-14] MEDS: CHOLECALCIFEROL (VITAMIN D3) 25 MCG (1,000 UNITS) TABLET 50 MCG PO (08:38)
[2024-09-14] MEDS: metFORMIN HCL XR 500 MG TAB.SR.24H PO ×2 (08:39→17:37)
[2024-09-14] MEDS: LOPERAMIDE HCL 2 MG CAPSULE PO (08:39)
[2024-09-14 16:00] VITALS: BP 116/58; PULSE 86; RESP 18; TEMP 36.2; O2SAT 95
[2024-09-14] MEDS: SIMVASTATIN 10 MG TABLET 80 MG PO (17:37)
[2024-09-14] MEDS: HYDROcodone/acetaminophen (*CRX) 5-325 MG TABLET 1 TAB PO (21:26)
[2024-09-14] MEDS: FENOFIBRATE NANOCRYSTALLIZED 145 MG TABLET PO (21:26)
[2024-09-15] VITALS: BP 113/44; PULSE 74; RESP 15; TEMP 36.1; O2SAT 96
[2024-09-15] MEDS: LOPERAMIDE HCL 2 MG CAPSULE PO ×4 (01:30→23:25)
[2024-09-15] MEDS: HYDROcodone/acetaminophen (*CRX) 5-325 MG TABLET 2 TAB PO (01:32)
[2024-09-15 08:00] VITALS: BP 131/60; PULSE 74; RESP 18; TEMP 36.1; O2SAT 94
[2024-09-15] MEDS: ASPIRIN 81 MG CHEWABLE TABLET PO ×2 (08:52→17:30)
[2024-09-15] MEDS: CHOLECALCIFEROL (VITAMIN D3) 25 MCG (1,000 UNITS) TABLET 50 MCG PO (08:52)
[2024-09-15] MEDS: CLOPIDOGREL BISULFATE 75 MG TABLET PO (08:53)
[2024-09-15] MEDS: OPTI-GEN TAB 1 TABLET PO (08:53)
[2024-09-15] MEDS: TAMSULOSIN HCL 0.4 MG CAPSULE PO (08:53)
[2024-09-15] MEDS: metFORMIN HCL XR 500 MG TAB.SR.24H PO ×2 (08:53→17:29)
[2024-09-15] MEDS: ASCORBIC ACID 500 MG TABLET PO ×2 (08:54→17:29)
[2024-09-15] MEDS: HYDROcodone/acetaminophen (*CRX) 5-325 MG TABLET 1 TAB PO ×2 (08:55→20:52)
--- NOTE | 2024-09-15 11:10 | PC.NURSE ---
Herlinda Gordillo from [facility] called r/t earlier call of needing order to leave surgical would [facility]FRE[facility]. This is due to Pt informing the doctor told him the wound could be LUMP ROLLER. Herlinda Gordillo called for clarification of request.
--- NOTE | 2024-09-15 12:00 | PC.NURSE ---
Incision open to air, order received.
[2024-09-15 16:00] VITALS: BP 126/66; PULSE 78; RESP 17; TEMP 35.8; O2SAT 95
[2024-09-15] MEDS: SIMVASTATIN 10 MG TABLET 80 MG PO (17:29)
[2024-09-15] MEDS: FENOFIBRATE NANOCRYSTALLIZED 145 MG TABLET PO (20:52)
--- NOTE | 2024-09-15 20:55 | PC.NURSE ---
Patient's blood sugar 56. Educated patient that he would be receiving oral glucose since his blood sugar was under 70. Patient refused the oral glucose, saying that he just wanted a snack instead. Patient given amara crackers, peanut butter and an Ensure. Patient denies any symptoms and none noted. Will recheck blood sugar in one hour.
--- NOTE | 2024-09-15 23:08 | PC.NURSE ---
Patient's blood sugar 90. Patient requested another Ensure @ this time. Ensure given.
[2024-09-16] VITALS: BP 133/58; PULSE 84; RESP 16; TEMP 36.6; O2SAT 97
[2024-09-16 08:00] VITALS: BP 130/67; PULSE 79; RESP 18; TEMP 36.4; O2SAT 96
[2024-09-16] MEDS: ASPIRIN 81 MG CHEWABLE TABLET PO ×2 (08:59→17:59)
[2024-09-16] MEDS: metFORMIN HCL XR 500 MG TAB.SR.24H PO ×2 (08:59→17:59)
[2024-09-16] MEDS: CHOLECALCIFEROL (VITAMIN D3) 25 MCG (1,000 UNITS) TABLET 50 MCG PO (08:59)
[2024-09-16] MEDS: TAMSULOSIN HCL 0.4 MG CAPSULE PO (08:59)
[2024-09-16] MEDS: CLOPIDOGREL BISULFATE 75 MG TABLET PO (08:59)
[2024-09-16] MEDS: OPTI-GEN TAB 1 TABLET PO (08:59)
[2024-09-16] MEDS: ASCORBIC ACID 500 MG TABLET PO ×2 (08:59→17:59)
[2024-09-16] MEDS: HYDROcodone/acetaminophen (*CRX) 5-325 MG TABLET 2 TAB PO (14:26)
[2024-09-16 16:00] VITALS: BP 129/58; PULSE 87; RESP 18; TEMP 36.6; O2SAT 95
[2024-09-16] MEDS: SIMVASTATIN 10 MG TABLET 80 MG PO (18:02)
[2024-09-16] MEDS: FENOFIBRATE NANOCRYSTALLIZED 145 MG TABLET PO (20:32)
[2024-09-16] MEDS: HYDROcodone/acetaminophen (*CRX) 5-325 MG TABLET 1 TAB PO (20:32)
[2024-09-17] VITALS: BP 118/62; PULSE 76; RESP 16; TEMP 36; O2SAT 95
[2024-09-17] MEDS: LOPERAMIDE HCL 2 MG CAPSULE PO (01:52)
--- NOTE | 2024-09-17 01:53 | PC.NURSE ---
PATIENT AMBULATED TO THE BATHROOM TIMES 2 AND BACK TO BED. REQUESTED IMMODIUM FOR DIARRHEA. GIVEN PER MAY
[2024-09-17] MEDS: HYDROcodone/acetaminophen (*CRX) 5-325 MG TABLET 1 TAB PO (06:07)
[2024-09-17 08:00] VITALS: BP 148/71; PULSE 73; RESP 18; TEMP 36.5; O2SAT 96
[2024-09-17] MEDS: CHOLECALCIFEROL (VITAMIN D3) 25 MCG (1,000 UNITS) TABLET 50 MCG PO (08:53)
[2024-09-17] MEDS: TAMSULOSIN HCL 0.4 MG CAPSULE PO (08:54)
[2024-09-17] MEDS: ASCORBIC ACID 500 MG TABLET PO (08:54)
[2024-09-17] MEDS: ASPIRIN 81 MG CHEWABLE TABLET PO (08:54)
[2024-09-17] MEDS: CLOPIDOGREL BISULFATE 75 MG TABLET PO (08:54)
[2024-09-17] MEDS: OPTI-GEN TAB 1 TABLET PO (08:54)
[2024-09-17] MEDS: metFORMIN HCL XR 500 MG TAB.SR.24H PO (08:54)
--- NOTE | 2024-09-17 09:37 | P.DS_ITS ---
DS: Admitting Diagnosis Discharge Date 09/17/2024 Admitting Diagnosis Rehab post total right knee replacement DS: Discharge Diagnosis Discharge Diagnosis (1) Status post right knee replacement: Code(s): Z96.651 - Presence of right artificial knee joint Status: Acute (2) Vitamin D deficiency: Code(s): E55.9 - Vitamin D deficiency, unspecified Status: Acute (3) Hypertension: Code(s): I10 - Essential (primary) hypertension Status: Acute (4) Coronary artery disease status post coronary stent insertion: Code(s): I25.10 - Atherosclerotic heart disease of [place] coronary artery without angina pectoris; Z95.5 - Presence of coronary angioplasty implant and graft Status: Acute (5) HLD (hyperlipidemia): Code(s): E78.5 - Hyperlipidemia, unspecified Status: Acute (6) Diabetes type 2: Code(s): E11.9 - Type 2 diabetes mellitus without complications Status: Acute (7) BPH (benign prostatic hyperplasia): Code(s): N40.0 - Benign prostatic hyperplasia without lower urinary tract symptoms Status: Acute DS: Summary Hospital Course Reason for hospitalization: Rehab post Total right knee replacement Hospital Course: Patient was a 84-year-old male who was admitted to [facility] for continued rehab after a total right knee replacement. Patient reports history of CAD with 3 stents, HTN, diabetes, BPH, and HLD. Patient with expected progression with PT/OT for strength training and balance with pain management. Labs and vitals reviewed and within desirable ranges. Patient seen and assessed day of discharge in no acute distress on assessment denied any chest pain, SOB, nausea, vomiting, ABD pain or dizziness. Patient was discharged to home with home health, resumed home medications as prescribed except discontinued patient hydrochlorothiazide BP at discharge 118/62. Patient instructed to continue to wear his antonio hose and follow-up with his orthopedic surgeon as scheduled. Status at Discharge Functional status at discharge: uses cane/walker Overall status at discharge: patient is progressing back to baseline Time Spent with Patient Time attestation: Total time spent providing and/or coordinating discharge services: Time spent: Greater than 30 minutes Exam Narrative: Physical Exam: * GENERAL: Alert and oriented x 3. No acute distress. * EYES: EOMI. No scleral icterus. PERRLA. * HEENT: Moist mucous membranes. * LUNGS: Clear to auscultation bilaterally. No accessory muscle use. * CARDIOVASCULAR: Regular rate and rhythm. No murmur. No JVD. S1-S2 * ABDOMEN: Soft, non tenderness and non-distended. No palpable masses. * EXTREMITIES: right knee with surgical dressing no erythema or swelling * SKIN: No rashes or lesions. Skin warm, dry. * NEUROLOGIC: No focal neurological deficits. CN II-XII grossly intact * PSYCHIATRIC: Appropriate mood and affect. DS: Data Data Completed and Pending Labs on day of discharge: Labs from last 24 hours 09/17/24 09/16/24 09/16/24 07:55 20:31 16:59 POC Capillary Glucose 155 H 110 H 93 09/16/24 11:57 POC Capillary Glucose 142 H Discharge Plan Discharge Attending physician on discharge: Armando Torres Consulting providers: Emely Dobson Discharging Clinician: Emely Dobson Anticipated Discharge Date/Time: 09/17/24 09:29 Patient Disposition: Home with Home Health Service Discharge Instructions: 1). Per Care Coordination: [facility] will follow you at discharge to continue physical therapy at home. They will call to schedule a date/time and will try to see you on September 20. 2). Dr. Lomeli would like for you to continue wearing your ANTONIO hose for 4 weeks post op. You may continue to use your ice machine as needed for swelling. 3). I have prescribed Vincent pain medication as needed please taper down and transition to Acetaminophen once tolerated. 4). I encourage oral hydration and increase activity as tolerated How can you care for yourself at home? ? Keep track of any new symptoms or changes in your symptoms. ? Rest until you feel better. ? Be safe with medicines. Take your medicines exactly as prescribed. Call your doctor if you think you are having a problem with your medicine. ? Do not drive after taking a prescription pain medicine. ? Ensure to follow-up with primary care physician as indicated and provide updated medication list provided to you at discharge. When should you call for help? Call 911 anytime you think you may need emergency care. For example, call if: ? You passed out (lost consciousness). Call your doctor now or seek immediate medical care if: ? You have new symptoms like fever, difficulty breathing, Chest pain, vomiting, or rash. ? You have new or different pain. ? You are confused and are having trouble thinking clearly. ? Your symptoms are getting worse. Watch closely for changes in your health, and be sure to contact your doctor if: ? You do not get better as expected. Patient Instructions: Antibiotic Form, Hydrocodone/Acetaminophen (By mouth), Fall Prevention for Older Adults (GEN), Precautions after Total Joint Replacement Surgery (DC), Total Knee Replacement (DC) Patient Language: Lao Stand Alone Forms: General Discharge Information Follow-up/Referrals: Carlos,Hans Carver MD [Primary Care Provider] - 2 weeks Discharge Medications: Continued amlodipine 10 mg tablet 10 mg PO DAILY ascorbic acid (vitamin C) 500 mg capsule 500 mg PO BID aspirin 81 mg tablet 81 mg PO BID Patient Comments: for 25 days Rx Instructions: for 25 days [facility] Men 50 Plus [phone] mcg tablet 1 tablet PO DAILY cholecalciferol (vitamin D3) 50 mcg (2,000 unit) capsule 50 mcg PO DAILY Patient Comments: start Rx Instructions: start 09/03/24 clopidogrel 75 mg tablet 75 mg PO DAILY diclofenac sodium 75 mg tablet,delayed release (DR/EC) 75 mg PO DAILY PRN (Reason: pain) fenofibrate 160 mg tablet 160 mg PO HS glipizide 5 mg tablet 5 mg PO BIDWM lisinopril 40 mg tablet 40 mg PO DAILY metformin 500 mg tablet extended release 24 hr 500 mg PO BID nystatin 100,000 unit/gram cream 1 applic topical DAILY PRN (Reason: rash) Rx Instructions: affected areas Eye Multivitamin 2,148 mcg-113 mg-45 mg-17.4mg tablet 1 tablet PO BID Rx Instructions: administer with a meal senna-docusate sodium Capsule 1 cap PO BID simvastatin 80 mg tablet 80 mg PO QPM tamsulosin 0.4 mg capsule 0.4 mg PO Q24H Rx Instructions: 1/2 hour after same meal every day Changed hydrocodone-acetaminophen 5-325 mg tablet 1 tablet PO Q6-8H PRN (Reason: pain (scale score 4-6)) Qty: 20 0RF Discontinued hydrochlorothiazide 25 mg tablet 25 mg PO DAILY hydrocodone-acetaminophen 5-325 mg tablet 2 tablet PO Q4H PRN (Reason: pain (scale score 7-10)) Date of admission: 09/02/24 14:28 Primary Care Provider: Carlso,Hans Carver Admitting Provider: Jose Francisco Chavez Attending physician on admission: Jose Francisco Chavez Condition: Stable Quality VTE Prophylaxis VTE prophylaxis: mechanical ordered -Patient's previous records reviewed on admission -ER notes reviewed in detail on admission -discussed all findings and current treatment plan with patient/Family/POA -Consultations reviewed for recommendations -Patient's disposition for safe discharge discussed with case management manager Dictation performed by [employer] direct speech recognition software, therefore navigation officer variants and typographical errors may occur. Hospitalist MIPS Heart Failure (Exclusion) Patient has history of Heart Transplant or Left Ventricular Assistive Device?: No IF YES, STOP HERE Heart Failure (Qualifier) Patient has current or prior documentation of LVEF less than or equal to 40%, or mod/servere depressed LVSF?: No IF NO, STOP HERE
[2024-09-17] MEDS: HYDROcodone/acetaminophen (*CRX) 5-325 MG TABLET 2 TAB PO (09:45)
--- NOTE | 2024-09-17 10:15 | PC.NURSE ---
Discharge instructions reviewed with patient. Patients belongings taken out by daughter. Patient taken off floor per wheelchair.
--- NOTE | 2024-09-19 08:28 | PC.NURSE ---
Contacted Manoj for Discharge call back, he has no questions at this time, feels he is doing good and understood all instructions and education.
== END 2024-09-17 10:15 | disposition home health service (06) | DRG 561 ==
PROVIDERS: Nurse Practitioner Family; Admitting Provider Internal Medicine; PCP Internal Medicine; Visit Provider Internal Medicine
DX: Z47.1 Aftercare following joint replacement surgery (principal); Z96.651 Presence of right artificial knee joint; R53.81 Other malaise; E11.9 Type 2 diabetes mellitus without complications; E55.9 Vitamin D deficiency, unspecified; E78.5 Hyperlipidemia, unspecified; I25.10 Atherosclerotic heart disease of native coronary artery without angina pectoris; I10 Essential (primary) hypertension; N40.0 Benign prostatic hyperplasia without lower urinary tract symptoms; Z95.5 Presence of coronary angioplasty implant and graft; Z79.84 Long term (current) use of oral hypoglycemic drugs; Z79.82 Long term (current) use of aspirin; Z87.891 Personal history of nicotine dependence
CPT/HCPCS: 36415; 80053; 82948; 83735; 85027; 97110; 97161; 97165; 97530; 97535; A9270; J1815